=== PATIENT | female | born 1940 | race Caucasian/White ===

== ENCOUNTER → 2017-02-18 | Outpatient (CLI) | payer MEDICARE ==
[~2017-02-18] MED LIST: AMBIEN5 MG; CELEBREX200 MG; CEPHALEXIN500 M1 PO; ENTERIC ASPIRI325 MG; FLAXSEED OIL; FUROSEMIDE40 MG; GLYBURIDE1.25 MG; JANUVIA50 MG; KCL; METOPROLOL50 MG; Quinapril10 MG; SIMVASTATIN40 MG
[2017-02-18 09:34] LABS: BASO % 0.3 % (0.0-1.0); EOS # 0.2 10*3/uL (0.0-0.4); EOS % 2.2 % (1.0-4.0); HEMATOCRIT 41.9 % (37.0-47.0); LYMPH # 1.4 10*3/uL (1.3-4.4); LYMPH % 19.9 % (27.0-41.0); MEAN CELL VOLUME 94.2 fl (81.0-99.0); MEAN CORPUSCULAR HGB 31.5 pg (27.0-31.0); MEAN CORPUSCULAR HGB CONC 33.4 g/dl (33.0-37.0); MEAN PLATELET VOLUME 11.3 fl (9.6-12.3); MONO # 0.6 10*3/uL (0.1-1.0); MONO % 8.6 % (3.0-9.0); NEUT # 4.6 10*3/uL (2.3-7.9); NEUT % 68.4 % (47.0-73.0); PLATELET COUNT AUTOMATED 132 10*3/uL (130-400); RED BLOOD COUNT 4.45 10*6/uL (4.10-5.10); RED CELL DISTRI WIDTH 13.9 % (0-14.5); WHITE BLOOD COUNT 6.8 10*3/uL (4.8-10.8)
[2017-02-18 09:58] LABS: ALBUMIN 3.7 gm/dl (3.1-4.5); BILIRUBIN, TOTAL 0.5 mg/dl (0.2-1.0); FREE T4 0.74 ng/dl (0.76-1.46); POTASSIUM 4.3 mmol/L (3.5-5.1)
[2017-02-18 10:02] LABS: THYROID STIM HORMONE (HS) 19.7 uIU/ml (0.358-4.75)
[2017-02-18 10:07] LABS: HEMOGLOBIN A1c 6.6 % (4.8-5.6)
== END | disposition home or self-care (01) ==
LOC: LAB 09:08
PROVIDERS: Family Medicine
DX: E11.8 Type 2 diabetes mellitus with unspecified complications (principal); R06.02 Shortness of breath; I10 Essential (primary) hypertension; G47.00 Insomnia, unspecified; M25.512 Pain in left shoulder; Z79.4 Long term (current) use of insulin; Z86.79 Personal history of other diseases of the circulatory system; R05 Cough

== ENCOUNTER → 2017-02-23 | Outpatient (CLI) | payer MEDICARE | END | disposition home or self-care (01) | LOC: CARD 02:48 | DX: E11.8 Type 2 diabetes mellitus with unspecified complications (principal); I10 Essential (primary) hypertension; R06.02 Shortness of breath; G47.00 Insomnia, unspecified; M25.512 Pain in left shoulder; I34.0 Nonrheumatic mitral (valve) insufficiency; Z79.4 Long term (current) use of insulin; Z86.79 Personal history of other diseases of the circulatory system ==

== ENCOUNTER → 2018-01-18 | Outpatient (CLI) | payer MEDICARE | END | disposition home or self-care (01) | LOC: RESCLI 04:05 | DX: I12.9 Hypertensive chronic kidney disease with stage 1 through stage 4 chronic kidney disease, or unspecified chronic kidney disease (principal); E11.22 Type 2 diabetes mellitus with diabetic chronic kidney disease; N18.9 Chronic kidney disease, unspecified; K21.9 Gastro-esophageal reflux disease without esophagitis; E03.9 Hypothyroidism, unspecified; E78.5 Hyperlipidemia, unspecified; J30.9 Allergic rhinitis, unspecified; E66.01 Morbid (severe) obesity due to excess calories; G47.00 Insomnia, unspecified; R00.1 Bradycardia, unspecified; Z87.39 Personal history of other diseases of the musculoskeletal system and connective tissue; Z86.79 Personal history of other diseases of the circulatory system; Z87.891 Personal history of nicotine dependence ==

== ENCOUNTER → 2018-04-20 | Outpatient (CLI) | payer MEDICARE | END | disposition home or self-care (01) | LOC: LAB 11:46 | DX: N18.9 Chronic kidney disease, unspecified (principal) ==

== ENCOUNTER → 2018-06-14 | Outpatient (CLI) | payer MEDICARE | END | disposition home or self-care (01) | LOC: RESCLI 01:14 | DX: I11.0 Hypertensive heart disease with heart failure (principal); I50.22 Chronic systolic (congestive) heart failure; E11.22 Type 2 diabetes mellitus with diabetic chronic kidney disease; E03.9 Hypothyroidism, unspecified; E78.5 Hyperlipidemia, unspecified; J30.9 Allergic rhinitis, unspecified; G47.00 Insomnia, unspecified; Z87.39 Personal history of other diseases of the musculoskeletal system and connective tissue; Z86.79 Personal history of other diseases of the circulatory system; Z79.899 Other long term (current) drug therapy; Z79.82 Long term (current) use of aspirin; Z87.891 Personal history of nicotine dependence ==

== ENCOUNTER → 2018-09-28 | Outpatient (CLI) | payer MEDICARE | END | disposition home or self-care (01) | LOC: RESCLI 08:50 | DX: I13.0 Hypertensive heart and chronic kidney disease with heart failure and stage 1 through stage 4 chronic kidney disease, or unspecified chronic kidney disease (principal); E11.22 Type 2 diabetes mellitus with diabetic chronic kidney disease; N18.9 Chronic kidney disease, unspecified; I50.22 Chronic systolic (congestive) heart failure; E03.9 Hypothyroidism, unspecified; E78.5 Hyperlipidemia, unspecified; J30.9 Allergic rhinitis, unspecified; G47.00 Insomnia, unspecified; J40 Bronchitis, not specified as acute or chronic; E66.9 Obesity, unspecified; E78.00 Pure hypercholesterolemia, unspecified; K21.9 Gastro-esophageal reflux disease without esophagitis; Z53.20 Procedure and treatment not carried out because of patient's decision for unspecified reasons; Z88.8 Allergy status to other drugs, medicaments and biological substances; Z79.899 Other long term (current) drug therapy; Z87.39 Personal history of other diseases of the musculoskeletal system and connective tissue; Z86.79 Personal history of other diseases of the circulatory system ==

== ENCOUNTER → 2019-01-03 | Outpatient (CLI) | payer MEDICARE ==
[2019-01-03 09:42] LABS: HEMATOCRIT 40.6 % (37.0-47.0); HEMOGLOBIN 12.8 g/dl (12.0-16.0); MEAN CELL VOLUME 99.3 fl (81.0-99.0); MEAN CORPUSCULAR HGB 31.3 pg (27.0-31.0); MEAN CORPUSCULAR HGB CONC 31.5 g/dl (33.0-37.0); MEAN PLATELET VOLUME 11.5 fl (9.6-12.3); RED BLOOD COUNT 4.09 10*6/uL (4.10-5.10); RED CELL DISTRI WIDTH 13.6 % (0-14.5); WHITE BLOOD COUNT 7.8 10*3/uL (4.8-10.8)
[2019-01-03 10:07] LABS: ALBUMIN 3.8 gm/dl (3.1-4.5); CREATININE 1.99 mg/dL (0.55-1.02); POTASSIUM 3.7 mmol/L (3.5-5.1)
[2019-01-03 10:29] LABS: FREE T4 1.03 ng/dl (0.76-1.46)
== END | disposition home or self-care (01) ==
LOC: LAB 09:01
PROVIDERS: Internal Medicine
DX: I13.0 Hypertensive heart and chronic kidney disease with heart failure and stage 1 through stage 4 chronic kidney disease, or unspecified chronic kidney disease (principal); E11.22 Type 2 diabetes mellitus with diabetic chronic kidney disease; I50.22 Chronic systolic (congestive) heart failure; N18.3 Chronic kidney disease, stage 3 (moderate); E03.9 Hypothyroidism, unspecified; E78.5 Hyperlipidemia, unspecified; Z86.79 Personal history of other diseases of the circulatory system

== ENCOUNTER → 2019-04-11 | Outpatient (CLI) | payer MEDICARE ==
[2019-04-11 12:17] LABS: CREATININE 2.3 mg/dL (0.55-1.02); POTASSIUM 3.8 mmol/L (3.5-5.1)
== END | disposition home or self-care (01) ==
LOC: RESCLI 01:34
PROVIDERS: Internal Medicine
DX: J30.9 Allergic rhinitis, unspecified (principal); I13.0 Hypertensive heart and chronic kidney disease with heart failure and stage 1 through stage 4 chronic kidney disease, or unspecified chronic kidney disease; E11.22 Type 2 diabetes mellitus with diabetic chronic kidney disease; N18.4 Chronic kidney disease, stage 4 (severe); I50.22 Chronic systolic (congestive) heart failure; E03.9 Hypothyroidism, unspecified; E78.5 Hyperlipidemia, unspecified; G47.00 Insomnia, unspecified; E55.9 Vitamin D deficiency, unspecified; M79.10 Myalgia, unspecified site; K21.9 Gastro-esophageal reflux disease without esophagitis; Z87.39 Personal history of other diseases of the musculoskeletal system and connective tissue; Z86.79 Personal history of other diseases of the circulatory system; Z79.899 Other long term (current) drug therapy

== ENCOUNTER → 2019-06-21 | Outpatient (CLI) | payer MEDICARE | END | disposition home or self-care (01) | LOC: RESCLI 00:49 | DX: I13.0 Hypertensive heart and chronic kidney disease with heart failure and stage 1 through stage 4 chronic kidney disease, or unspecified chronic kidney disease (principal); E11.22 Type 2 diabetes mellitus with diabetic chronic kidney disease; I50.22 Chronic systolic (congestive) heart failure; N18.9 Chronic kidney disease, unspecified; N17.9 Acute kidney failure, unspecified; J30.9 Allergic rhinitis, unspecified; E03.9 Hypothyroidism, unspecified; G47.00 Insomnia, unspecified; E55.9 Vitamin D deficiency, unspecified; Z87.39 Personal history of other diseases of the musculoskeletal system and connective tissue; Z86.79 Personal history of other diseases of the circulatory system; Z79.899 Other long term (current) drug therapy; Z87.891 Personal history of nicotine dependence; Z88.8 Allergy status to other drugs, medicaments and biological substances ==

== ENCOUNTER → 2019-06-29 | Outpatient (CLI) | payer MEDICARE ==
[2019-06-29 10:47] LABS: CREATININE 2.07 mg/dL (0.55-1.02); POTASSIUM 3.5 mmol/L (3.5-5.1); URINE CREATININE RANDOM 36.4 mg/dL
== END | disposition home or self-care (01) ==
LOC: LAB 01:09 → RESCLI 01:09
PROVIDERS: Internal Medicine
DX: E11.22 Type 2 diabetes mellitus with diabetic chronic kidney disease (principal); N17.9 Acute kidney failure, unspecified

== ENCOUNTER 2019-08-08 15:47 | Inpatient (IN) | payer MEDICARE ==
[~2019-08-08] VITALS: Ht 157.5 cm; Wt 71.8 kg
[2019-08-08 15:50] VITALS: BP 162/96
--- NOTE | 2019-08-08 16:01 | NUR ---
RESPIRATORY AT THE BEDSIDE PLACING PT ON BIPAP.
[2019-08-08 16:05] LABS: BASO # 0.1 10*3/uL (0.0-0.1); BASO % 0.3 % (0.0-1.0); EOS # 0.1 10*3/uL (0.0-0.4); EOS % 0.7 % (1.0-4.0); HEMATOCRIT 41.3 % (37.0-47.0); LYMPH # 2.1 10*3/uL (1.3-4.4); LYMPH % 11.7 % (27.0-41.0); MEAN CORPUSCULAR HGB 30.2 pg (27.0-31.0); MEAN CORPUSCULAR HGB CONC 31.5 g/dl (33.0-37.0); MEAN PLATELET VOLUME 11.4 fl (9.6-12.3); MONO # 1.3 10*3/uL (0.1-1.0); MONO % 7.1 % (3.0-9.0); NEUT # 14.3 10*3/uL (2.3-7.9); NEUT % 79.5 % (47.0-73.0); PLATELET COUNT AUTOMATED 210 10*3/uL (130-400); RED CELL DISTRI WIDTH 14.2 % (0-14.5)
--- NOTE | 2019-08-08 16:11 | NUR ---
16:00 PT ARRIVED TO DEM I SRESP DISTRESS. PT ON 100% NRB. SPO2 88-90% RR 30 PT C/O SOB. PT AAO 3. BBSs WITH WHEEZES WITH CRACKLES IN BASES AND DIMINISHED T/O. ABG OBATINED. PT PLACED ON BIPAP 20/10 75% PT STATES HER BREATHING FEELS BETTER. SYSTEM CHECKED AND FX'ING. RR 27 VST 400-550. SPO2 98 HR 97. PT STABLE
[2019-08-08 16:12] LABS: ARTERIAL BLOOD GAS PH 7.213 (7.35-7.45)
[2019-08-08 16:13] LABS: ABG BASE EXCESS -6.1 mmol/L (-2.0-2.0)
[2019-08-08 16:15] LABS: ACT PARTIAL THROMBO TIME 25.6 SECONDS (20.0-32.1); INTERNATIONAL NORM RATIO 0.9 (2.0-3.5)
[2019-08-08 16:20] VITALS: BP 154/50
[2019-08-08 16:22] LABS: ALBUMIN 3.8 gm/dl (3.1-4.5); CREATININE 2.49 mg/dL (0.55-1.02); POTASSIUM 3.8 mmol/L (3.5-5.1); TOTAL PROTEIN 7.6 gm/dL (6.4-8.2)
[2019-08-08 16:24] LABS: TROPONIN I 0.743 ng/ml (<0.045)
--- NOTE | 2019-08-08 16:24 | NUR ---
TROPONIN 0.743. DR EDDY AWARE.
[2019-08-08 16:52] VITALS: BP 167/58
--- NOTE | 2019-08-08 16:52 | NUR ---
RESTING IN NO DISTRESS AT THIS TIME.
[2019-08-08] MEDS ORDERED: LASIX40 MG PO (16:55)
[2019-08-08] MEDS ORDERED: TRAZODONE100 MG PO (16:56)
[2019-08-08] MEDS ORDERED: METOPROLOL SUCC50 M1 PO (16:56)
[2019-08-08] MEDS ORDERED: QUINAPRIL10 M1 PO (16:56)
[2019-08-08] MEDS ORDERED: ZYLOPRIM100 MG PO (16:56)
[2019-08-08] MEDS ORDERED: LEVOXYL75 MCG PO (16:57)
[2019-08-08] MEDS ORDERED: NORVASC5 MG PO (16:58)
[2019-08-08] MEDS ORDERED: VITAMIN D32000 UNI1 PO (16:58)
[2019-08-08] MEDS ORDERED: ATARAX,VISTARIL10 MG PO (16:58)
--- NOTE | 2019-08-08 17:47 | NUR ---
PT TAKENOFF OF BIPAP. BBSs CLEAR. RESPS REGULAR AND UNLABORED. PT AAO X 3. PT PLACED ON 10 L HFNC. SPO2 93%. INITIALLY PT PLACED ON 6 L NC. SPO2 88% VIA REGUALR NC. RN AND AWARE.
--- NOTE | 2019-08-08 18:13 | NUR ---
A 79, admitted to , under the services of JACLYN Valles DO with a diagnosis of CHF,NSTEMI. Chief complaint is SOB. Patient arrived via stretcher from ER. Monitor applied. Initial assessment completed. Vital signs taken and recorded. JACLYN VALLES DO notified of admission to the unit. Orders received. See assessment for past medical history, medications and allergies. Patient and/or family oriented to unit. [facility] visitation policy reviewed. Clothing/patient valuable form completed. HOME MEDICATION LIST UPDATED IN ER TETO PARADA
--- NOTE | 2019-08-08 18:46 | NUR ---
DR. SONG ON UNIT, AWARE OF ECG, AWARE PATIENT REQUEST BIPAP, PT SAO2 93% ON 10L HIGH. OKAY TO ORDER BIPAP
--- NOTE | 2019-08-08 19:40 | NUR ---
TROPONIN OF 0.[address] MERCEDES. SEE NEW ORDERS.
--- NOTE | 2019-08-08 19:55 | NUR ---
MESSAGE LEFT WITH CARDIOLOGY REGARDING CONSULT. AWAITING CALL BACK.
--- NOTE | 2019-08-08 19:59 | NUR ---
DR. MEDEROS RETURNED CALL. 2MG IV BUMEX ORDERED AT THIS TIME AND WILL SEE PATIENT IN AM.
[2019-08-08 20:00] VITALS: BP 157/74
--- NOTE | 2019-08-08 22:54 | NUR ---
TROPONIN 0.697, AWARE.
[2019-08-09] VITALS: BP 137/81
--- NOTE | 2019-08-09 00:40 | NUR ---
APTT 39.1, HEPARIN GTT INCREASED BY 2U/KG/HR PER POLICY. APTT ORDERED FOR AM.
[2019-08-09 03:26] LABS: BASO % 0.2 % (0.0-1.0); EOS % 0.2 % (1.0-4.0); HEMATOCRIT 36.5 % (37.0-47.0); HEMOGLOBIN 11.5 g/dl (12.0-16.0); LYMPH # 1.3 10*3/uL (1.3-4.4); LYMPH % 10.3 % (27.0-41.0); MEAN CELL VOLUME 96.1 fl (81.0-99.0); MEAN CORPUSCULAR HGB 30.3 pg (27.0-31.0); MEAN CORPUSCULAR HGB CONC 31.5 g/dl (33.0-37.0); MEAN PLATELET VOLUME 10.9 fl (9.6-12.3); MONO # 1.1 10*3/uL (0.1-1.0); NEUT % 79.9 % (47.0-73.0); PLATELET COUNT AUTOMATED 181 10*3/uL (130-400); RED CELL DISTRI WIDTH 14.1 % (0-14.5); WHITE BLOOD COUNT 12.5 10*3/uL (4.8-10.8)
[2019-08-09 03:38] LABS: ACT PARTIAL THROMBO TIME 40.8 SECONDS (20.0-32.1); INTERNATIONAL NORM RATIO 0.9 (2.0-3.5)
[2019-08-09 03:43] LABS: ALBUMIN 3.5 gm/dl (3.1-4.5); CREATININE 2.61 mg/dL (0.55-1.02); PHOSPHOROUS 4.5 mg/dL (2.5-4.9); POTASSIUM 3.8 mmol/L (3.5-5.1); TOTAL PROTEIN 7.1 gm/dL (6.4-8.2)
[2019-08-09 03:49] LABS: THYROID STIM HORMONE (HS) 1.74 uIU/ml (0.358-4.75)
--- NOTE | 2019-08-09 03:58 | NUR ---
PATIENT C/O MIDSTERNAL CHEST PAIN/RIB PAIN RADIATING DOWN LEFT ARM. STAT EKG AND TROPONIN ORDERED. TROPONIN 0.[address] MERCEDES AWARE. PRN MORPHINE GIVEN AND EFFECTIVE PER PATIENT. CALL LIGHT IS WITHIN REACH, WILL MONITOR.
--- NOTE | 2019-08-09 06:35 | NUR ---
DR. MERCEDES CONTACTED IN REGARDS TO PATIENT HAVING MOIST PRODUCTIVE COUGH FOR BROWN SPUTUM. SEE NEW ORDERS.
--- NOTE | 2019-08-09 06:53 | NUR ---
APTT 39.6, RATE INCREASED BY POLICY. NEW RATE IS 16U/KG/HR:12ML/HR.
--- NOTE | 2019-08-09 07:22 | NUR ---
TOOK PT OFF OF BIPAP AND PLACED ON HFNC 13L
--- NOTE | 2019-08-09 08:01 | NUR ---
PT STATES IT FEELS LIKE HER SUGER IS DROPPING. BSG CHECKED AND FOUND TO BE 195. COMPLAINS THAT SHE "CAN'T BREATH". POX96% ON 10L NC HIGHFLOW. LABORED RESPERS. STATES SHE ALSO HASN'T HAD A BREATHING TX SINCE SHE ARRIVED. NOTIFIED . ORDERS FOR DUONED Q6H PRN REC'D. SEE OCT.
[2019-08-09 12:00] VITALS: BP 132/97
--- NOTE | 2019-08-09 12:09 | NUR ---
AWARE OF TROP OF 0.662 AND TRENDING DOWN.
--- NOTE | 2019-08-09 12:13 | NUR ---
HEPARIN DRIP INCREASED BY 2 UNITS PER POLICY VERIFIED BY MYSELF AND RN VIVIANA ESPARZA AT BEDSIDE. NOW INFUSING AT 18U/KG/HR @ 13.5 ML/HR. NEW APPT ORDERED. AWARE PT IS STILL NOT THERAPEUTIC. SAID TO FOLLOW POLICY.
--- NOTE | 2019-08-09 12:18 | NUR ---
MESSAGE LEFT FOR REGARDING NEW CONSULT. AWAITING CALL BACK.
--- NOTE | 2019-08-09 13:18 | NUR ---
MORPHINE GIVEN FOR CHEST PRESSURE AND BACK PAIN RATED 8/10. WILL MONITOR. CALL LIGHT WITHIN REACH. VISITING WITH FAMILY AT BEDSIDE.
--- NOTE | 2019-08-09 13:48 | NUR ---
PER PT, MORPHINE WAS SOMEWHAT EFFECTIVE. PAIN RATED 6/10. MOSTLY COMPLAINS OF SOB AT REST AT THIS TIME. WILL CONTINUE TO MONITOR. CALL LIGHT IN REACH. FAMILY AT BEDSIDE.
--- NOTE | 2019-08-09 14:44 | NUR ---
NOTIFIED OF 'S RECOMMENDATIONS. SAID HE WOULD ORDER THE LASIX. SEE MAR. ALSO NOTIFIED OF HR 120s. SAID HE WOULD COME TO SEE PT.
--- NOTE | 2019-08-09 14:50 | NUR ---
AND IN TO SEE PT.
--- NOTE | 2019-08-09 14:56 | NUR ---
ORDERED TO START BUMEX 2MG Q8H BY AND STOP LASIX. SEE MAR.
--- NOTE | 2019-08-09 14:58 | NUR ---
NORCO GIVEN FOR PAIN RATED 6/10. CALL LIGHT IN REACH. WILL MONITOR.
--- NOTE | 2019-08-09 15:36 | NUR ---
PER PT, PAIN IS NOW 3/10, NORCO EFFECTIVE. CALL LIGHT WITHIN REACH. FAMILY AT BEDSIDE.
[2019-08-09 16:00] VITALS: BP 155/83
--- NOTE | 2019-08-09 16:14 | NUR ---
CARDIZEM PUSH GIVEN PER 'S ORDERS FOR HR 130s. WILL MONITOR.
[2019-08-09 17:06] LABS: ABG BASE EXCESS -5.7 mmol/L (-2.0-2.0); ARTERIAL BLOOD GAS PH 7.296 (7.35-7.45)
--- NOTE | 2019-08-09 17:37 | NUR ---
HR 80s PER CM. AWARE CARDIZEM BOLUS WAS EFFECTIVE.
--- NOTE | 2019-08-09 17:52 | NUR ---
APTT 51.5 NO CHANGE NEEDED PER POLICY. SEE MAR. APTT DRAW ORDERED WITH AM LABS PER POLICY.
[2019-08-09 20:00] VITALS: BP 141/85
--- NOTE | 2019-08-09 20:30 | NUR ---
Patient resting quietly with C/O BACK AND SHOULDER PAIN, WILL BE MEDICATED WITH MORPHINE. Respirations easy and regular ON BIPAP. Vital signs stable. No overt distress. MAREN GARCÍA
--- NOTE | 2019-08-09 20:55 | NUR ---
PATIENT MEDICATED WITH IV MORPHINE FOR C/O BACK/SHOULDER PAIN 02/22. WILL CONTINUE TO MONITOR
--- NOTE | 2019-08-09 21:55 | NUR ---
MORPHINE EFFECTIVE PER PATIENT
[2019-08-10] VITALS: BP 142/81
--- NOTE | 2019-08-10 02:02 | NUR ---
24 HR chart check completed.
[2019-08-10 06:31] LABS: HEMATOCRIT 31.6 % (37.0-47.0); HEMOGLOBIN 9.8 g/dl (12.0-16.0); MEAN CELL VOLUME 95.8 fl (81.0-99.0); MEAN CORPUSCULAR HGB 29.7 pg (27.0-31.0); MEAN PLATELET VOLUME 11.5 fl (9.6-12.3); PLATELET COUNT AUTOMATED 142 10*3/uL (130-400); WHITE BLOOD COUNT 8.3 10*3/uL (4.8-10.8)
[2019-08-10 06:45] LABS: ALBUMIN 3.1 gm/dl (3.1-4.5); CREATININE 2.73 mg/dL (0.55-1.02); POTASSIUM 4.2 mmol/L (3.5-5.1); TOTAL PROTEIN 6.8 gm/dL (6.4-8.2)
[2019-08-10 06:56] LABS: PLATELET SUFFICIENCY NORMAL (NORMAL); TOTAL CELLS COUNTED 100 #CELLS
[2019-08-10 06:57] LABS: TARGET CELLS FEW
--- NOTE | 2019-08-10 09:00 | NUR ---
Locomotive Inspector in to talk to patient. Patient states lives at home with . There are no steps in the home. Physician: [facility]acy: [facility] [place] [facility] services: none Patient's level of ADLs: MINIMAL ASSIST Patient has working utilities: all working DME: walker Follow-up physician's appointment after d/c: will be made by hospitalist nurse director upon discharge Does patient want to access PORTAL?: no Discharge plan discussed with patient and , she lives at home with , she states she uses a walker for ambulation and is independent in adls, she does not have home oxygen. discussed a discharge plan with her and and she stated she would return home, was in agreement with this. also discussed with them [facility] and educated on their services, she stated she didn't want any home services at this time, case management will follow. CHACORTA HUNTER
--- NOTE | 2019-08-10 09:47 | NUR ---
PT C/O RIBCAGE & STOMACH PAIN 02/22. MORPHINE ADMINISTERED AT THIS TIME.
--- NOTE | 2019-08-10 10:47 | NUR ---
PT STATES SHE RECEIVED "A LITTLE" RELIEF FROM THE MORPHINE.
--- NOTE | 2019-08-10 10:48 | NUR ---
DR BUCHANAN ON THE FLOOR AT THIS TIME, NOTIFIED OF NEW PATIENT CONSULT. IN TO SEE PT NOW.
[2019-08-10 12:00] VITALS: BP 142/60
[2019-08-10 12:52] LABS: BILIRUBIN NEGATIVE (NEGATIVE); BLOOD 2+ (NEGATIVE); CLARITY CLEAR (CLEAR); COLOR YELLOW (YELLOW); GLUCOSE NEGATIVE (NEGATIVE); KETONE NEGATIVE (NEGATIVE); LEUKO ESTERASE NEGATIVE (NEGATIVE); NITRITE NEGATIVE (NEGATIVE); UROBILINOGEN 0.2 E.U./dl (0.2-1.0)
[2019-08-10 13:01] LABS: URINE CREATININE RANDOM 64.2 mg/dL
[2019-08-10 14:00] VITALS: BP 114/96
[2019-08-10 20:00] VITALS: BP 159/66
--- NOTE | 2019-08-10 21:01 | NUR ---
PATIENT MEDICATED WITH MORPHINE FOR C/O BACK PAIN 02/22. WILL CONITNUE TO MONITOR
--- NOTE | 2019-08-10 22:26 | NUR ---
MORPHINE SOMEWHAT EFFECTIVE FOR BACK PAIN. MEDICTED WITH NORCO FOR C/O OF 4/10 BACK PAIN. WILL MONITOR
--- NOTE | 2019-08-10 23:26 | NUR ---
NORCO APPEARS EFFECTIVE. PATIENT RESTING QUIETLY, EYES CLOSED. NO DISTRESS NOTED. WILL MONITOR
[2019-08-11] VITALS: BP 145/66
[2019-08-11 06:18] LABS: CREATININE 2.64 mg/dL (0.55-1.02); POTASSIUM 4.5 mmol/L (3.5-5.1)
[2019-08-11 06:31] LABS: BASO % 0.1 % (0.0-1.0); HEMATOCRIT 33.5 % (37.0-47.0); HEMOGLOBIN 10.4 g/dl (12.0-16.0); LYMPH # 0.7 10*3/uL (1.3-4.4); LYMPH % 4.8 % (27.0-41.0); MEAN CELL VOLUME 95.2 fl (81.0-99.0); MEAN CORPUSCULAR HGB 29.5 pg (27.0-31.0); MEAN PLATELET VOLUME 11.4 fl (9.6-12.3); MONO # 1.2 10*3/uL (0.1-1.0); MONO % 8.5 % (3.0-9.0); NEUT # 12.5 10*3/uL (2.3-7.9); NEUT % 85.6 % (47.0-73.0); PLATELET COUNT AUTOMATED 175 10*3/uL (130-400); RED BLOOD COUNT 3.52 10*6/uL (4.10-5.10); RED CELL DISTRI WIDTH 14.1 % (0-14.5); WHITE BLOOD COUNT 14.6 10*3/uL (4.8-10.8)
--- NOTE | 2019-08-11 08:54 | NUR ---
DR RODRIGUEZ NOTIFIED OF PT C/O CONSTIPATION. AWAITING NEW ORDERS.
--- NOTE | 2019-08-11 09:00 | NUR ---
case management visits with patient, present, patient states she will return home when medically stable and denies any home needs, also denies any home needs for patient
--- NOTE | 2019-08-11 10:35 | NUR ---
PRN NORCO AND MOM ADMINISTERED FOR 7/10 ABDOMINAL PAIN RELATED TO COUGHING AND CONSTIPATION. WILL MONITOR.
[2019-08-11 12:00] VITALS: BP 147/87
[2019-08-11 16:00] VITALS: BP 154/72
--- NOTE | 2019-08-11 17:10 | NUR ---
PRICE REMOVED AT THIS TIME. PT TOLERATED WELL.
[2019-08-11 20:00] VITALS: BP 130/78; BP 165/88
--- NOTE | 2019-08-11 20:27 | NUR ---
PATIENT C/O ABDOMINAL AND BREAST MEDICATED WITH NORCO ORDERED PRN.
--- NOTE | 2019-08-11 22:48 | NUR ---
RECEIVED CALL FROM [place], ADVISED OF A 2 BEAT RUN OF V TACH, CALLED HOSPITALIST URSULA, SPOKE TO DR. STILES, AND ADVISED, HE VERSED HE WOULD COME CHECJ IT OUT.
[2019-08-12] VITALS: BP 154/83
[2019-08-12 08:45] LABS: ALBUMIN 3.2 gm/dl (3.1-4.5); CREATININE 2.35 mg/dL (0.55-1.02); POTASSIUM 4.5 mmol/L (3.5-5.1); TOTAL PROTEIN 6.2 gm/dL (6.4-8.2)
[2019-08-12 12:00] VITALS: BP 164/72
[2019-08-12 16:00] VITALS: BP 132/45
--- NOTE | 2019-08-12 17:02 | NUR ---
AT 1650 SPO2 87-88% ON 6LNC INCREASED O2 TO 8L SPO2 UP 91% PT ON PULSE OX
--- NOTE | 2019-08-12 19:40 | NUR ---
PRIMARY EDUCATION PROFESSOR PHONED RE PT'S ELEVATED HR AND PULSE OX DROPPING INTO LOW 80'S. PT CHECKED ON AND PT NOTED TO BE TACHYCARDIC W/HR IN 130'S AND SAT 83% W/LABORED RESPS. ATTEMPTED TO CALM PT AND ENCOURAGE HER TO BREATH IN THROUGH HER NOSE. PT HR REMAINS TACHY AND SAT REMAINS AT 85%. RESPIRATORY NOTIFIED. PT PLACED ON BIPAP AT THIS TIME. HR DECREASED TO HIGH 90'S AND SAT INCREASED TO 90%. RESPS DECREASING. WILL CONTINUE TO MONITOR. CALL LIGHT IN REACH.
[2019-08-12 20:00] VITALS: BP 135/50
--- NOTE | 2019-08-12 21:20 | NUR ---
PT MEDICATED W/RESTORIL PER REQUEST TO HELP PROMOTED SLEEP. PT ASSISTED TO BSC. SAT DROPPED TO 86% AND HR INCREASED TO 120. PT COUGHING UP BLOODY SPUTUM. PT PLACED BACK ON BIPAP. CALL LIGHT IN REACH.
--- NOTE | 2019-08-12 23:25 | NUR ---
24 HR chart check completed.
[2019-08-13] VITALS (7 sets, daily range): BP systolic 148–182; BP diastolic 52–82
--- NOTE | 2019-08-13 00:46 | NUR ---
DR. ORELLANA NOTIFIED OF PT'S MANUAL BP OF 182/80. TO LOOK AT CHART AND ORDER SOMETHING.
--- NOTE | 2019-08-13 01:19 | NUR ---
PT MEDICATED W/2ML OF LABATOLOL FOR HTN. PT ASYMPTOMATIC. WILL RECHECK BP IN 1 HR.
[2019-08-13 07:09] LABS: COMPLEMENT C4 001834 27 mg/dL (14-44)
[2019-08-13 09:37] LABS: HEMATOCRIT 32.4 % (37.0-47.0); HEMOGLOBIN 10.3 g/dl (12.0-16.0); MEAN CELL VOLUME 96.1 fl (81.0-99.0); MEAN CORPUSCULAR HGB 30.6 pg (27.0-31.0); MEAN CORPUSCULAR HGB CONC 31.8 g/dl (33.0-37.0); MEAN PLATELET VOLUME 11.4 fl (9.6-12.3); PLATELET COUNT AUTOMATED 156 10*3/uL (130-400); RED BLOOD COUNT 3.37 10*6/uL (4.10-5.10); RED CELL DISTRI WIDTH 14.1 % (0-14.5); WHITE BLOOD COUNT 11.7 10*3/uL (4.8-10.8)
[2019-08-13 09:52] LABS: ALBUMIN 3.3 gm/dl (3.1-4.5); CREATININE 2.15 mg/dL (0.55-1.02); POTASSIUM 4.1 mmol/L (3.5-5.1); TOTAL PROTEIN 6.6 gm/dL (6.4-8.2)
[2019-08-13 10:15] LABS: OVALOCYTES FEW; PLATELET SUFFICIENCY NORMAL (NORMAL); POLYCHROMASIA SLIGHT; TOTAL CELLS COUNTED 100 #CELLS
--- NOTE | 2019-08-13 11:23 | NUR ---
MILK OF MAG GIVEN PER PATIENT REQUEST FOR CONSTIPATION.
--- NOTE | 2019-08-13 12:18 | NUR ---
PATIENT'S POX IS DROPPING INTO THE MID 90S BUT SHE JUST USED THE BSC AND AND IS NOW HAVING A COUGHING FIT.
--- NOTE | 2019-08-13 15:00 | NUR ---
HEPARIN INFUSION DISCONTINUED ORDERED BY DR NAILS.
--- NOTE | 2019-08-13 15:28 | NUR ---
MESSAGE LEFT WITH ANSWERING SERVICE FOR DR MCNEIL TO NOTIFY HIM THAT HEPARIN INFUSION WAS STOPPED REQUESTED BY DR NAILS.
[2019-08-13 16:05] LABS: HEPATITIS B SURFACE AG Negative (Negative); HEPATITIS C VIRUS ANTIBODY <0.1 s/co (0.0-0.9)
--- NOTE | 2019-08-13 19:50 | NUR ---
Patient resting quietly with no c/o discomfort. Respirations easy and regular. Vital signs stable. No overt distress. JASWINDER CERVANTES
--- NOTE | 2019-08-14 01:25 | NUR ---
24 HR CHART CHECK COMPLETED
[2019-08-14 06:18] LABS: HEMATOCRIT 31.3 % (37.0-47.0); HEMOGLOBIN 9.7 g/dl (12.0-16.0); MEAN CELL VOLUME 95.4 fl (81.0-99.0); MEAN CORPUSCULAR HGB 29.6 pg (27.0-31.0); MEAN PLATELET VOLUME 10.7 fl (9.6-12.3); PLATELET COUNT AUTOMATED 157 10*3/uL (130-400); RED BLOOD COUNT 3.28 10*6/uL (4.10-5.10); RED CELL DISTRI WIDTH 13.9 % (0-14.5); WHITE BLOOD COUNT 11.8 10*3/uL (4.8-10.8)
[2019-08-14 06:45] LABS: OVALOCYTES FEW; PLATELET SUFFICIENCY NORMAL (NORMAL); TOTAL CELLS COUNTED 100 #CELLS
[2019-08-14 06:47] LABS: CREATININE 2.14 mg/dL (0.55-1.02); POTASSIUM 4.2 mmol/L (3.5-5.1); TOTAL PROTEIN 6.2 gm/dL (6.4-8.2)
[2019-08-14 07:58] VITALS: BP 162/98
[2019-08-14 10:05] LABS: GLOMERULAR BASEMENT AB 082719 4 units (0-20)
--- NOTE | 2019-08-14 11:17 | NUR ---
PATIENT TO CARDIAC REHAB BY WHEELCHAIR FOR STRESS TEST AT THIS TIME.
--- NOTE | 2019-08-14 12:18 | NUR ---
INFORMED SIGNED CONSENT OBTAINED FOR LEXISCAN STRESS TEST WITH DR MCNEIL. RESTING EKG RBBB WITH PVC'S HR 88 BP 120/78. PULSE OX 91% ON 4L O2, LUNGS DIMINISHED AND CLEAR. PT COMPLETED ONE MINUTE OF A LEXISCAN PROTOCOL WITH PT RECEIVING LEXISCAN 0.4MG IV OVER 10 SECONDS[address] PVC'S NOTED. NO ST CHANGES SEEN. LAST RECOVERY HR OF 100 BP 134/80. PT HAD SOB WITH INJECTION. PT IN STABLE CONDITION, AWAITING NUCLEAR IMAGES.
--- NOTE | 2019-08-14 14:05 | NUR ---
PATIENT BACK FROM STRESS TEST, RESUMING MEDS AND DIET, SEE SHIFT ASSESSMENTS FOR DETAILS. MEDICATED WITH PRN PO DULCOLAX FOR CONSTIPATION AND ROBITUSSIN FOR COUGH.
[2019-08-14 14:07] LABS: ALPHA-1-GLOBULIN 0.4 g/dL (0.0-0.4); ALPHA-2-GLOBULIN 1.1 g/dL (0.4-1.0); BETA GLOBULIN 0.8 g/dL (0.7-1.3); GAMMA GLOBULIN 0.7 g/dL (0.4-1.8); M-SPIKE Not Observed g/dL (Not Observed)
[2019-08-14 15:09] LABS: FREE KAPPA LIGHT CHAINS 29.9 mg/L (3.3-19.4); KAPPA/LAMBDA RATIO 1.03 (0.26-1.65)
[2019-08-14 16:00] VITALS: BP 170/70
--- NOTE | 2019-08-14 16:12 | NUR ---
PATIENT HAD A LARGE MUSHY BM, DULCOLAX EFFECTIVE, NO NEED FOR ADDITIONAL LAXATIVES, PER PATIENT. SENDING SAMPLE FOR OCCULT BLOOD STOOL.
[2019-08-14 20:00] VITALS: BP 162/66
--- NOTE | 2019-08-14 20:07 | NUR ---
PATIENT SLEEPING. AROUSABLE. RESPIRATIONS EASY NON LABORED. NO SIGNS OF DISTRESS. BED IN LOWEST POSITION,CALL LIGHT WITHIN REACH, WILL CONTINUE TO MONITOR.
--- NOTE | 2019-08-14 23:03 | NUR ---
NOTIFIED DR. MERCEDES PATIENT HAD 6 PEAT RUN OF VTACH. TOLD TO ORDER MAG LEVEL FOR AM. NO OTHER ORDERS RECEIVED AT THIS TIME. WILL CONTINUE TO MONITOR.
[2019-08-15] VITALS: BP 170/80
--- NOTE | 2019-08-15 00:05 | NUR ---
NOTIFIED DR. MERCEDES OF PATIENTS ELEVATED BLOODPRESSURE. PATIENT ALSO COMPLAINING OF CHEST HEAVINESS. 1 TIME DOSE NORVASC ORDERED. TROPONIN AND EKG ORDERED WELL. WILL CONTINUE TO MONITOR.
--- NOTE | 2019-08-15 00:53 | NUR ---
NOTIFIED DR. MERCEDES OF PATIENTS TROPONIN. NO NEW ORDERS RECIEVED
--- NOTE | 2019-08-15 01:15 | NUR ---
PLACED PATIENT ON BIPAP FOR HS
[2019-08-15 07:02] LABS: HEMOGLOBIN 9.8 g/dl (12.0-16.0); MEAN CELL VOLUME 95.4 fl (81.0-99.0); MEAN CORPUSCULAR HGB 30.2 pg (27.0-31.0); MEAN CORPUSCULAR HGB CONC 31.6 g/dl (33.0-37.0); MEAN PLATELET VOLUME 11.5 fl (9.6-12.3); PLATELET COUNT AUTOMATED 160 10*3/uL (130-400); RED BLOOD COUNT 3.25 10*6/uL (4.10-5.10); RED CELL DISTRI WIDTH 13.9 % (0-14.5); WHITE BLOOD COUNT 14.4 10*3/uL (4.8-10.8)
[2019-08-15 07:22] LABS: POTASSIUM 3.9 mmol/L (3.5-5.1)
[2019-08-15 07:29] LABS: CREATININE 2.04 mg/dL (0.55-1.02); TOTAL PROTEIN 6.1 gm/dL (6.4-8.2)
[2019-08-15 07:31] LABS: PLATELET SUFFICIENCY NORMAL (NORMAL); TOTAL CELLS COUNTED 100 #CELLS
[2019-08-15 08:00] VITALS: BP 156/70
[2019-08-15 12:00] VITALS: BP 102/66; BP 176/83
--- NOTE | 2019-08-15 12:40 | NUR ---
Patient information faxed to [facility] for review so see if patient will qualify for LTACH. Waiting on review.
[2019-08-15 13:07] LABS: ALBUMIN, URINE RANDOM 59.9 % (.); ALPHA-1-GLOBULIN, URINE 7.9 % (.); ALPHA-2-GLOBULIN, URINE 6.2 % (.); GAMMA GLOBULIN, URINE 12.2 % (.); M-SPIKE % 2.9 % (Not Observed); PROTEIN,TOTAL - URINE RANDOM 92.2 mg/dL (Not Estab.)
[2019-08-15 16:00] VITALS: BP 181/70
[2019-08-15 16:07] LABS: CYTOPLASMIC (C-ANCA) <1:20 titer (Neg:<1:20)
[2019-08-15 20:00] VITALS: BP 181/72
[2019-08-16] VITALS (8 sets, daily range): BP systolic 133–181; BP diastolic 62–110
[2019-08-16 06:15] LABS: HEMATOCRIT 34.6 % (37.0-47.0); HEMOGLOBIN 10.7 g/dl (12.0-16.0); MEAN CELL VOLUME 94.8 fl (81.0-99.0); MEAN CORPUSCULAR HGB 29.3 pg (27.0-31.0); MEAN CORPUSCULAR HGB CONC 30.9 g/dl (33.0-37.0); MEAN PLATELET VOLUME 11.5 fl (9.6-12.3); PLATELET COUNT AUTOMATED 170 10*3/uL (130-400); RED BLOOD COUNT 3.65 10*6/uL (4.10-5.10); RED CELL DISTRI WIDTH 13.8 % (0-14.5); WHITE BLOOD COUNT 16.3 10*3/uL (4.8-10.8)
[2019-08-16 06:29] LABS: CREATININE 2.04 mg/dL (0.55-1.02); POTASSIUM 4.3 mmol/L (3.5-5.1)
[2019-08-16 07:52] LABS: PLATELET SUFFICIENCY NORMAL (NORMAL); TOTAL CELLS COUNTED 100 #CELLS; TOXIC GRANULATION MODERATE
--- NOTE | 2019-08-16 10:28 | NUR ---
IV INFILTRATED. DISCONTINUED. SPOKE WITH MONET IN SURGERY. SAID SHE WOULD PASS ON TO ANESTHESIA TO PLACE NEW IV SITE.
--- NOTE | 2019-08-16 12:15 | NUR ---
OFF FLOOR FOR BRONCH.
--- NOTE | 2019-08-16 13:43 | NUR ---
BACK TO ROOM FOLLOWING BRONCH. VSS. TOLERATED LIQUIDS WELL.
[2019-08-17] VITALS: BP 156/61
--- NOTE | 2019-08-17 00:45 | NUR ---
SLEEPING WITH EASY AND REGULAR RESPERS ON 3L O2 VIA OPTIFLOW. CALL LIGHT IS WITHIN REACH.
[2019-08-17 08:00] VITALS: BP 154/80
--- NOTE | 2019-08-17 08:30 | NUR ---
Patient resting quietly with no c/o discomfort. Respirations easy and regular. Vital signs stable. No overt distress. KIKI LESLIE R
--- NOTE | 2019-08-17 09:57 | NUR ---
PT. NOT WEARING BIPAP THIS MORNING AT 0754
--- NOTE | 2019-08-17 11:00 | NUR ---
case management visits with patient, present, discussed with her and re educated her on the services provided by [facility], patient decined, stated she wasn't going to [facility]. also discussed and educated her on a short term usp for rehab prior to returning home, patient also declined this, asked her if she had been up ambulating in her room over the last week and she stated she had gotten up to the bedside commode, but not ambulating, educated her and again on the short term usp and five days of therapy prior to returning home, patient became angry and stated she wasn't going anywhere but home. discussed with them [facility] and their services patient stated she didn't want this either that her takes care of her. stated that VNA is a good idea and he would like [facility], will notify [facility] when patient is medically stable for discharge
[2019-08-17] MEDS ORDERED: BUMETANIDE2 MG PO (11:59)
[2019-08-17] MEDS ORDERED: IMDUR SA30 MG PO (11:59)
[2019-08-17] MEDS ORDERED: ATORVASTATIN CA40 M1 PO (11:59)
[2019-08-17] MEDS ORDERED: ASPIRIN CHEWABL81 M1 PO (11:59)
[2019-08-17 12:00] VITALS: BP 147/64
--- NOTE | 2019-08-17 12:24 | NUR ---
case management faxed patient's information to Emili at [facility] and informed her that patient is a discharge today
--- NOTE | 2019-08-17 14:17 | NUR ---
PULSE OX ON R/A AT REST 76%. PT. PLACED ON 2L O2, O2 INCREASING TO 94% AT REST, HEART RATE 82. PT. AMBULATED ON 2L IN THE [facility], PULSE OX WAS 94 WITH AMBULATION ON 2L. PT. RETURNED TO ROOM, RESTING AT BEDSIDE WITH O2 ON 2L, SAT 94% HEART RATE AFTER WALK WAS 84. B/P 147/56. RN AND NOTIFIED OF RESULTS.
[2019-08-17 16:00] VITALS: BP 168/68
--- NOTE | 2019-08-17 17:22 | NUR ---
Discharge instructions reviewed with patient/family. Patient receptive and verbalizes understanding. Follow-up care arranged. Written instructions given to patient/family. KIKI LESLIE
[2019-08-18 16:05] LABS: ACID FAST SPEC PROCESSING Concentration (.)
== END 2019-08-17 17:23 | disposition home or self-care (01) | DRG 871 ==
LOC: ED 15:47 → EDHOLD 17:43 → 4E 17:43
PROVIDERS: Emergency Medicine; Hospitalist; Internal Medicine; Internal Medicine Critical Care Medicine; Internal Medicine Nephrology; Student in an Organized Health Care Education/Training Program; ADMIT Internal Medicine
PROC: 5A09357 Assistance with Respiratory Ventilation, Less than 24 Consecutive Hours, Continuous Positive Airway Pressure (ICD-10-PCS; principal; 2019-08-08)
PROC: 5A09357 Assistance with Respiratory Ventilation, Less than 24 Consecutive Hours, Continuous Positive Airway Pressure (ICD-10-PCS; 2019-08-09)
PROC: 5A09357 Assistance with Respiratory Ventilation, Less than 24 Consecutive Hours, Continuous Positive Airway Pressure (ICD-10-PCS; 2019-08-10)
PROC: 5A09357 Assistance with Respiratory Ventilation, Less than 24 Consecutive Hours, Continuous Positive Airway Pressure (ICD-10-PCS; 2019-08-11)
PROC: 5A09357 Assistance with Respiratory Ventilation, Less than 24 Consecutive Hours, Continuous Positive Airway Pressure (ICD-10-PCS; 2019-08-12)
PROC: 5A09357 Assistance with Respiratory Ventilation, Less than 24 Consecutive Hours, Continuous Positive Airway Pressure (ICD-10-PCS; 2019-08-13)
PROC: 4A02XM4 Measurement of Cardiac Total Activity, External Approach (ICD-10-PCS; 2019-08-14)
PROC: 3E073KZ Introduction of Other Diagnostic Substance into Coronary Artery, Percutaneous Approach (ICD-10-PCS; 2019-08-14)
PROC: 0B978ZZ Drainage of Left Main Bronchus, Via Natural or Artificial Opening Endoscopic (ICD-10-PCS; 2019-08-16)
PROC: 0B968ZZ Drainage of Right Lower Lobe Bronchus, Via Natural or Artificial Opening Endoscopic (ICD-10-PCS; 2019-08-16)
PROC: 0B948ZZ Drainage of Right Upper Lobe Bronchus, Via Natural or Artificial Opening Endoscopic (ICD-10-PCS; 2019-08-16)
PROC: 0B958ZZ Drainage of Right Middle Lobe Bronchus, Via Natural or Artificial Opening Endoscopic (ICD-10-PCS; 2019-08-16)
DX: A41.9 Sepsis, unspecified organism (principal); I21.4 Non-ST elevation (NSTEMI) myocardial infarction; J18.9 Pneumonia, unspecified organism; N17.0 Acute kidney failure with tubular necrosis; I50.33 Acute on chronic diastolic (congestive) heart failure; J96.01 Acute respiratory failure with hypoxia; J96.02 Acute respiratory failure with hypercapnia; N18.4 Chronic kidney disease, stage 4 (severe); I13.0 Hypertensive heart and chronic kidney disease with heart failure and stage 1 through stage 4 chronic kidney disease, or unspecified chronic kidney disease; E87.1 Hypo-osmolality and hyponatremia; E44.1 Mild protein-calorie malnutrition; R04.2 Hemoptysis; J44.1 Chronic obstructive pulmonary disease with (acute) exacerbation; J44.0 Chronic obstructive pulmonary disease with (acute) lower respiratory infection; K92.1 Melena; R65.20 Severe sepsis without septic shock; E78.5 Hyperlipidemia, unspecified; E03.9 Hypothyroidism, unspecified; I25.10 Atherosclerotic heart disease of native coronary artery without angina pectoris; D64.9 Anemia, unspecified; E66.3 Overweight; D72.810 Lymphocytopenia; T68.XXXA Hypothermia, initial encounter; E87.8 Other disorders of electrolyte and fluid balance, not elsewhere classified; E11.65 Type 2 diabetes mellitus with hyperglycemia; E83.51 Hypocalcemia; E83.41 Hypermagnesemia; E78.00 Pure hypercholesterolemia, unspecified; M10.9 Gout, unspecified; J20.9 Acute bronchitis, unspecified; I27.20 Pulmonary hypertension, unspecified; R80.9 Proteinuria, unspecified; R31.9 Hematuria, unspecified; Z68.29 Body mass index [BMI] 29.0-29.9, adult; Z85.21 Personal history of malignant neoplasm of larynx; Z92.3 Personal history of irradiation; Z92.21 Personal history of antineoplastic chemotherapy; Z87.891 Personal history of nicotine dependence; Z79.899 Other long term (current) drug therapy; Z90.710 Acquired absence of both cervix and uterus; Z95.5 Presence of coronary angioplasty implant and graft; I25.2 Old myocardial infarction; Z89.029 Acquired absence of unspecified finger(s); Z82.49 Family history of ischemic heart disease and other diseases of the circulatory system; Z83.6 Family history of other diseases of the respiratory system

== ENCOUNTER → 2019-09-19 | Outpatient (CLI) | payer MEDICARE ==
[~2019-09-19] MED LIST changes: +ASPIRIN CHEWABL81 M1 PO; +ATARAX,VISTARIL10 MG PO; +ATORVASTATIN CA40 M1 PO; +BUMETANIDE2 MG PO; +FUROSEMIDE80 MG PO; +IMDUR SA30 MG PO; +LASIX40 MG PO; +LEVOXYL75 MCG PO; +METOPROLOL SUCC50 M1 PO; +NORVASC5 MG PO; +QUINAPRIL10 M1 PO; +TRAZODONE100 MG PO; +VITAMIN D32000 UNI1 PO; +ZYLOPRIM100 MG PO
[2019-09-19 15:25] LABS: CREATININE 2.32 mg/dL (0.55-1.02); POTASSIUM 3.7 mmol/L (3.5-5.1)
== END | disposition home or self-care (01) ==
LOC: LAB 14:46
PROVIDERS: Internal Medicine Cardiovascular Disease
DX: I50.32 Chronic diastolic (congestive) heart failure (principal)

== ENCOUNTER 2019-10-04 11:11 | Inpatient (IN) | payer MEDICARE ==
[~2019-10-04] VITALS: Ht 157.5 cm; Wt 65.6 kg
[~2019-10-04 11:11] MED LIST changes: -FUROSEMIDE80 MG PO
[2019-10-04 11:24] VITALS: BP 135/80
[2019-10-04 11:37] LABS: BASO % 0.3 % (0.0-1.0); EOS % 0.3 % (1.0-4.0); HEMATOCRIT 31.8 % (37.0-47.0); HEMOGLOBIN 9.6 g/dl (12.0-16.0); LYMPH # 0.9 10*3/uL (1.3-4.4); LYMPH % 7.9 % (27.0-41.0); MEAN CELL VOLUME 86.4 fl (81.0-99.0); MEAN CORPUSCULAR HGB 26.1 pg (27.0-31.0); MEAN CORPUSCULAR HGB CONC 30.2 g/dl (33.0-37.0); MEAN PLATELET VOLUME 11.3 fl (9.6-12.3); MONO # 0.5 10*3/uL (0.1-1.0); MONO % 4.3 % (3.0-9.0); NEUT # 9.4 10*3/uL (2.3-7.9); NEUT % 86.9 % (47.0-73.0); PLATELET COUNT AUTOMATED 196 10*3/uL (130-400); RED BLOOD COUNT 3.68 10*6/uL (4.10-5.10); RED CELL DISTRI WIDTH 15.8 % (0-14.5); WHITE BLOOD COUNT 10.8 10*3/uL (4.8-10.8)
[2019-10-04 11:48] LABS: ACT PARTIAL THROMBO TIME 21.9 SECONDS (20.0-32.1); INTERNATIONAL NORM RATIO 0.9 (2.0-3.5)
[2019-10-04 11:53] LABS: ALBUMIN 3.9 gm/dl (3.1-4.5); CREATININE 2.38 mg/dL (0.55-1.02); POTASSIUM 3.8 mmol/L (3.5-5.1); TOTAL PROTEIN 7.5 gm/dL (6.4-8.2)
[2019-10-04 11:59] LABS: TROPONIN I 0.266 ng/ml (<0.045)
[2019-10-04 12:48] VITALS: BP 137/75
[2019-10-04 13:31] VITALS: BP 149/64
[2019-10-04 13:50] VITALS: BP 144/71
[2019-10-04 16:00] VITALS: BP 140/84
[2019-10-04 20:00] VITALS: BP 153/48
[2019-10-05] VITALS (7 sets, daily range): BP systolic 100–163; BP diastolic 43–72
[2019-10-05 05:19] LABS: ACT PARTIAL THROMBO TIME 24.9 SECONDS (20.0-32.1); INTERNATIONAL NORM RATIO 0.9 (2.0-3.5)
[2019-10-05 05:26] LABS: ALBUMIN 3.3 gm/dl (3.1-4.5); CREATININE 2.19 mg/dL (0.55-1.02); FREE T4 1.29 ng/dl (0.76-1.46); PHOSPHOROUS 4.3 mg/dL (2.5-4.9); POTASSIUM 3.6 mmol/L (3.5-5.1); TOTAL PROTEIN 6.2 gm/dL (6.4-8.2)
[2019-10-05 05:30] LABS: THYROID STIM HORMONE (HS) 3.54 uIU/ml (0.358-4.75)
[2019-10-05 06:13] LABS: BASO % 0.3 % (0.0-1.0); EOS # 0.1 10*3/uL (0.0-0.4); EOS % 1.1 % (1.0-4.0); HEMATOCRIT 26.2 % (37.0-47.0); HEMOGLOBIN 7.7 g/dl (12.0-16.0); LYMPH # 0.9 10*3/uL (1.3-4.4); LYMPH % 14.5 % (27.0-41.0); MEAN CELL VOLUME 89.1 fl (81.0-99.0); MEAN CORPUSCULAR HGB 26.2 pg (27.0-31.0); MEAN CORPUSCULAR HGB CONC 29.4 g/dl (33.0-37.0); MEAN PLATELET VOLUME 11.4 fl (9.6-12.3); MONO # 0.5 10*3/uL (0.1-1.0); MONO % 8.6 % (3.0-9.0); NEUT # 4.7 10*3/uL (2.3-7.9); NEUT % 75.2 % (47.0-73.0); PLATELET COUNT AUTOMATED 158 10*3/uL (130-400); RED BLOOD COUNT 2.94 10*6/uL (4.10-5.10); RED CELL DISTRI WIDTH 15.8 % (0-14.5); WHITE BLOOD COUNT 6.3 10*3/uL (4.8-10.8)
[2019-10-05 08:41] LABS: VITAMIN D, 25-HYDROXY 52.2 ng/mL (30-100)
[2019-10-05 12:34] LABS: ABG BASE EXCESS 3.6 mmol/L (-2.0-2.0); ARTERIAL BLOOD GAS PH 7.406 (7.35-7.45)
[2019-10-06] VITALS: BP 155/69
[2019-10-06 04:00] VITALS: BP 146/60
[2019-10-06 05:51] LABS: CREATININE 2.73 mg/dL (0.55-1.02)
[2019-10-06 06:05] LABS: BASO % 0.5 % (0.0-1.0); EOS # 0.1 10*3/uL (0.0-0.4); EOS % 1.8 % (1.0-4.0); HEMATOCRIT 27.9 % (37.0-47.0); HEMOGLOBIN 8.1 g/dl (12.0-16.0); LYMPH # 1.2 10*3/uL (1.3-4.4); LYMPH % 19.6 % (27.0-41.0); MEAN CELL VOLUME 89.4 fl (81.0-99.0); MEAN PLATELET VOLUME 11.2 fl (9.6-12.3); MONO # 0.6 10*3/uL (0.1-1.0); MONO % 10.2 % (3.0-9.0); NEUT # 4.2 10*3/uL (2.3-7.9); NEUT % 67.6 % (47.0-73.0); PLATELET COUNT AUTOMATED 149 10*3/uL (130-400); RED BLOOD COUNT 3.12 10*6/uL (4.10-5.10); RED CELL DISTRI WIDTH 15.9 % (0-14.5); WHITE BLOOD COUNT 6.2 10*3/uL (4.8-10.8)
[2019-10-06 08:00] VITALS: BP 152/74
[2019-10-06 09:33] LABS: URINE CREATININE RANDOM 95.9 mg/dL
[2019-10-06 12:00] VITALS: BP 150/67
[2019-10-06 16:00] VITALS: BP 143/62
[2019-10-06 20:01] VITALS: BP 140/62
[2019-10-06 22:01] LABS: BILIRUBIN NEGATIVE (NEGATIVE); BLOOD NEGATIVE (NEGATIVE); CLARITY CLEAR (CLEAR); COLOR YELLOW (YELLOW); GLUCOSE NEGATIVE (NEGATIVE); KETONE NEGATIVE (NEGATIVE); LEUKO ESTERASE 3+ (NEGATIVE); NITRITE NEGATIVE (NEGATIVE); UROBILINOGEN 0.2 E.U./dl (0.2-1.0)
[2019-10-06 22:05] LABS: BACTERIA 4+; EPITHELIAL CELLS 0-2; RBC 0-2 rbc/hpf (0-2); WBC 16-20 wbc/hpf (0-5)
[2019-10-06 22:06] LABS: MUCOUS TRACE
[2019-10-07] VITALS: BP 124/55
[2019-10-07 04:00] VITALS: BP 164/64
[2019-10-07 06:13] LABS: BASO % 0.2 % (0.0-1.0); EOS # 0.1 10*3/uL (0.0-0.4); EOS % 2.1 % (1.0-4.0); HEMATOCRIT 27.6 % (37.0-47.0); MEAN CELL VOLUME 87.3 fl (81.0-99.0); MEAN CORPUSCULAR HGB 25.3 pg (27.0-31.0); MEAN PLATELET VOLUME 11.4 fl (9.6-12.3); MONO # 0.5 10*3/uL (0.1-1.0); MONO % 10.1 % (3.0-9.0); NEUT # 3.5 10*3/uL (2.3-7.9); NEUT % 68.4 % (47.0-73.0); PLATELET COUNT AUTOMATED 146 10*3/uL (130-400); RED BLOOD COUNT 3.16 10*6/uL (4.10-5.10); RED CELL DISTRI WIDTH 15.7 % (0-14.5); WHITE BLOOD COUNT 5.2 10*3/uL (4.8-10.8)
[2019-10-07 06:36] LABS: CREATININE 2.31 mg/dL (0.55-1.02); PHOSPHOROUS 3.8 mg/dL (2.5-4.9); POTASSIUM 3.5 mmol/L (3.5-5.1)
[2019-10-07 08:00] VITALS: BP 159/60
[2019-10-07 11:07] LABS: ARTERIAL BLOOD GAS PH 7.411 (7.35-7.45)
[2019-10-07 12:00] VITALS: BP 140/60
[2019-10-07 16:00] VITALS: BP 147/53
[2019-10-07 20:01] VITALS: BP 154/66
[2019-10-08] VITALS (8 sets, daily range): BP systolic 136–181; BP diastolic 42–80
[2019-10-08 05:59] LABS: BASO % 0.2 % (0.0-1.0); EOS # 0.1 10*3/uL (0.0-0.4); EOS % 1.3 % (1.0-4.0); HEMATOCRIT 30.1 % (37.0-47.0); HEMOGLOBIN 8.8 g/dl (12.0-16.0); LYMPH # 0.9 10*3/uL (1.3-4.4); LYMPH % 13.5 % (27.0-41.0); MEAN CELL VOLUME 87.8 fl (81.0-99.0); MEAN CORPUSCULAR HGB 25.7 pg (27.0-31.0); MEAN CORPUSCULAR HGB CONC 29.2 g/dl (33.0-37.0); MEAN PLATELET VOLUME 11.5 fl (9.6-12.3); MONO # 0.7 10*3/uL (0.1-1.0); MONO % 10.5 % (3.0-9.0); NEUT # 4.7 10*3/uL (2.3-7.9); NEUT % 74.2 % (47.0-73.0); PLATELET COUNT AUTOMATED 162 10*3/uL (130-400); RED BLOOD COUNT 3.43 10*6/uL (4.10-5.10); RED CELL DISTRI WIDTH 15.7 % (0-14.5); WHITE BLOOD COUNT 6.4 10*3/uL (4.8-10.8)
[2019-10-08 06:07] LABS: CREATININE 2.14 mg/dL (0.55-1.02); POTASSIUM 3.4 mmol/L (3.5-5.1)
[2019-10-09] VITALS: BP 121/48
[2019-10-09 04:00] VITALS: BP 165/54
[2019-10-09 05:00] LABS: CREATININE 2.13 mg/dL (0.55-1.02); POTASSIUM 3.9 mmol/L (3.5-5.1)
[2019-10-09 06:12] LABS: BASO % 0.6 % (0.0-1.0); EOS # 0.1 10*3/uL (0.0-0.4); HEMATOCRIT 28.9 % (37.0-47.0); HEMOGLOBIN 8.4 g/dl (12.0-16.0); LYMPH # 0.9 10*3/uL (1.3-4.4); LYMPH % 17.8 % (27.0-41.0); MEAN CELL VOLUME 88.7 fl (81.0-99.0); MEAN CORPUSCULAR HGB 25.8 pg (27.0-31.0); MEAN CORPUSCULAR HGB CONC 29.1 g/dl (33.0-37.0); MEAN PLATELET VOLUME 11.8 fl (9.6-12.3); MONO # 0.7 10*3/uL (0.1-1.0); MONO % 12.8 % (3.0-9.0); NEUT # 3.4 10*3/uL (2.3-7.9); NEUT % 66.4 % (47.0-73.0); PLATELET COUNT AUTOMATED 150 10*3/uL (130-400); RED BLOOD COUNT 3.26 10*6/uL (4.10-5.10); RED CELL DISTRI WIDTH 15.5 % (0-14.5); WHITE BLOOD COUNT 5.1 10*3/uL (4.8-10.8)
[2019-10-09 08:00] VITALS: BP 173/54
[2019-10-09 11:35] LABS: BODY FLUID WBC 320 /uL
[2019-10-09 11:38] LABS: BODY FLUID WBC 227 /uL
[2019-10-09 12:00] VITALS: BP 161/55
[2019-10-09 12:15] LABS: BF LYMPHOCYTES 43 %; BF MACROPHAGES 27 %; BF MESOTHELIALS 7 %; BF NEUTROPHILS 23 %
[2019-10-09 12:23] LABS: BF LYMPHOCYTES 33 %; BF MACROPHAGES 36 %; BF MESOTHELIALS 5 %; BF MONOCYTES 1 %; BF NEUTROPHILS 24 %
[2019-10-09 16:00] VITALS: BP 124/53
[2019-10-09 20:00] VITALS: BP 124/53
[2019-10-10] VITALS: BP 114/66
[2019-10-10 04:00] VITALS: BP 142/42
[2019-10-10 05:47] LABS: CREATININE 2.08 mg/dL (0.55-1.02); POTASSIUM 3.8 mmol/L (3.5-5.1)
[2019-10-10 06:14] LABS: BASO % 0.4 % (0.0-1.0); EOS # 0.2 10*3/uL (0.0-0.4); EOS % 3.2 % (1.0-4.0); HEMATOCRIT 27.5 % (37.0-47.0); HEMOGLOBIN 8.2 g/dl (12.0-16.0); LYMPH # 1.1 10*3/uL (1.3-4.4); LYMPH % 21.1 % (27.0-41.0); MEAN CELL VOLUME 87.9 fl (81.0-99.0); MEAN CORPUSCULAR HGB 26.2 pg (27.0-31.0); MEAN CORPUSCULAR HGB CONC 29.8 g/dl (33.0-37.0); MEAN PLATELET VOLUME 11.6 fl (9.6-12.3); MONO # 0.6 10*3/uL (0.1-1.0); MONO % 11.3 % (3.0-9.0); NEUT # 3.2 10*3/uL (2.3-7.9); NEUT % 63.8 % (47.0-73.0); PLATELET COUNT AUTOMATED 137 10*3/uL (130-400); RED BLOOD COUNT 3.13 10*6/uL (4.10-5.10); RED CELL DISTRI WIDTH 15.8 % (0-14.5)
[2019-10-10 08:00] VITALS: BP 154/48
[2019-10-10 11:28] VITALS: BP 146/35
[2019-10-10 16:00] VITALS: BP 146/52
[2019-10-10 20:00] VITALS: BP 176/64
[2019-10-11] VITALS: BP 160/50
[2019-10-11 06:31] LABS: CREATININE 1.83 mg/dL (0.55-1.02); POTASSIUM 3.8 mmol/L (3.5-5.1)
[2019-10-11 08:00] VITALS: BP 184/60
[2019-10-11 12:00] VITALS: BP 162/50
[2019-10-11] MEDS ORDERED: FUROSEMIDE80 MG PO (15:26)
[2019-10-11 16:00] VITALS: BP 164/71
== END 2019-10-11 19:42 | disposition other institution (70) | DRG 280 ==
LOC: ED 11:11 → EDHOLD 12:58 → ICCU 12:58 → 5E 10-10 14:26
PROVIDERS: Emergency Medicine; Internal Medicine; Internal Medicine Critical Care Medicine; Internal Medicine Nephrology; ADMIT Internal Medicine
DX: I13.0 Hypertensive heart and chronic kidney disease with heart failure and stage 1 through stage 4 chronic kidney disease, or unspecified chronic kidney disease (principal); I21.A1 Myocardial infarction type 2; J96.21 Acute and chronic respiratory failure with hypoxia; I50.31 Acute diastolic (congestive) heart failure; N18.4 Chronic kidney disease, stage 4 (severe); N17.9 Acute kidney failure, unspecified; N39.0 Urinary tract infection, site not specified; J91.8 Pleural effusion in other conditions classified elsewhere; I38 Endocarditis, valve unspecified; D64.9 Anemia, unspecified; E11.65 Type 2 diabetes mellitus with hyperglycemia; E83.41 Hypermagnesemia; E03.9 Hypothyroidism, unspecified; M1A.9XX0 Chronic gout, unspecified, without tophus (tophi); I25.10 Atherosclerotic heart disease of native coronary artery without angina pectoris; E11.69 Type 2 diabetes mellitus with other specified complication; E78.5 Hyperlipidemia, unspecified; I27.20 Pulmonary hypertension, unspecified; R80.9 Proteinuria, unspecified; J45.909 Unspecified asthma, uncomplicated; G25.81 Restless legs syndrome; E66.01 Morbid (severe) obesity due to excess calories; E11.22 Type 2 diabetes mellitus with diabetic chronic kidney disease; I25.2 Old myocardial infarction; Z95.5 Presence of coronary angioplasty implant and graft; Z79.82 Long term (current) use of aspirin; Z79.899 Other long term (current) drug therapy; Z85.89 Personal history of malignant neoplasm of other organs and systems; Z90.710 Acquired absence of both cervix and uterus; Z87.891 Personal history of nicotine dependence; Z82.49 Family history of ischemic heart disease and other diseases of the circulatory system; Z83.6 Family history of other diseases of the respiratory system; Z89.029 Acquired absence of unspecified finger(s); Z68.28 Body mass index [BMI] 28.0-28.9, adult; Z99.81 Dependence on supplemental oxygen

== ENCOUNTER → 2019-10-04 | Outpatient (CLI) | payer MEDICARE | END | disposition home or self-care (01) | LOC: RESCLI 00:59 | DX: I11.0 Hypertensive heart disease with heart failure (principal); I50.33 Acute on chronic diastolic (congestive) heart failure; J96.01 Acute respiratory failure with hypoxia; F41.9 Anxiety disorder, unspecified; F32.9 Major depressive disorder, single episode, unspecified; K21.9 Gastro-esophageal reflux disease without esophagitis; E78.00 Pure hypercholesterolemia, unspecified; M19.90 Unspecified osteoarthritis, unspecified site; R73.03 Prediabetes; Z85.810 Personal history of malignant neoplasm of tongue; Z79.82 Long term (current) use of aspirin; Z79.899 Other long term (current) drug therapy; Z87.891 Personal history of nicotine dependence ==

== ENCOUNTER 2019-11-05 20:46 | Emergency (ER) | payer MEDICARE ==
[~2019-11-05] VITALS: Wt 78.9 kg
[~2019-11-05 20:46] MED LIST changes: +FUROSEMIDE80 MG PO
[2019-11-05 21:18] LABS: BILIRUBIN NEGATIVE (NEGATIVE); BLOOD NEGATIVE (NEGATIVE); CLARITY CLEAR (CLEAR); COLOR YELLOW (YELLOW); GLUCOSE NEGATIVE (NEGATIVE); KETONE NEGATIVE (NEGATIVE); UROBILINOGEN 0.2 E.U./dl (0.2-1.0)
[2019-11-05 21:19] LABS: LEUKO ESTERASE NEGATIVE (NEGATIVE); NITRITE NEGATIVE (NEGATIVE)
[2019-11-05 21:22] LABS: BACTERIA 1+; RBC 0-2 rbc/hpf (0-2)
[2019-11-05 21:24] LABS: HEMATOCRIT 26.1 % (37.0-47.0); HEMOGLOBIN 7.1 g/dl (12.0-16.0); MEAN CELL VOLUME 90.9 fl (81.0-99.0); MEAN CORPUSCULAR HGB 24.7 pg (27.0-31.0); MEAN CORPUSCULAR HGB CONC 27.2 g/dl (33.0-37.0); MEAN PLATELET VOLUME 11.6 fl (9.6-12.3); PLATELET COUNT AUTOMATED 188 10*3/uL (130-400); RED BLOOD COUNT 2.87 10*6/uL (4.10-5.10); WHITE BLOOD COUNT 12.3 10*3/uL (4.8-10.8)
[2019-11-05 21:50] LABS: ALBUMIN 2.1 gm/dl (3.1-4.5); CREATININE 1.95 mg/dL (0.55-1.02); POTASSIUM 2.8 mmol/L (3.5-5.1); TOTAL PROTEIN 4.3 gm/dL (6.4-8.2)
[2019-11-05 21:52] LABS: TROPONIN I 0.102 ng/ml (<0.045)
[2019-11-05 22:08] LABS: BURR CELLS MODERATE; OVALOCYTES FEW; SCHISTOCYTES FEW; TOTAL CELLS COUNTED 100 #CELLS
[2019-11-05 22:09] LABS: PLATELET SUFFICIENCY NORMAL (NORMAL)
[2019-11-06] VITALS: BP 127/55
== END 2019-11-06 00:56 | disposition short-term general hospital (02) ==
LOC: ED 20:46
PROVIDERS: Emergency Medicine
DX: I46.9 Cardiac arrest, cause unspecified (principal); M10.9 Gout, unspecified; I25.10 Atherosclerotic heart disease of native coronary artery without angina pectoris; E78.5 Hyperlipidemia, unspecified; E03.9 Hypothyroidism, unspecified; I13.0 Hypertensive heart and chronic kidney disease with heart failure and stage 1 through stage 4 chronic kidney disease, or unspecified chronic kidney disease; E11.22 Type 2 diabetes mellitus with diabetic chronic kidney disease; N18.4 Chronic kidney disease, stage 4 (severe); I50.9 Heart failure, unspecified; I25.2 Old myocardial infarction; Z79.4 Long term (current) use of insulin; Z87.891 Personal history of nicotine dependence; Z79.899 Other long term (current) drug therapy